=== PATIENT | male | born 1985 | race Caucasian/White ===

== ENCOUNTER → 2017-12-29 | Outpatient (CLI) | payer OTHER ==
[~2017-12-29] MED LIST: MELA1TAB5 PO; PRLSR20 PO
--- NOTE | 2017-12-29 10:36 | PAT Medication Instructions ---
Service Date Dec 29, 2017. Current Home Medication List Melatonin ( Melatonin), 1 TAB PO HS Omeprazole (Prilosec), 40 MG PO QPM Medication Instructions For Your Scheduled Surgery - Take the following medications as scheduled the night before surgery: Melatonin ( Melatonin), 1 TAB PO HS Omeprazole (Prilosec), 40 MG PO QPM If you have any questions please call us at [phone] or [phone] or [phone]
[2017-12-29 12:06] LABS: BASO % 0.5 %; BASO ABS # 0.03 K/uL (0-0.2); EOS % 0.6 %; EOS ABS # 0.04 K/uL (0-0.5); HEMATOCRIT 43.9 % (42-52); HEMOGLOBIN 15.1 g/dL (14.0-18.0); IG# 0.04 K/uL (0.00-0.02); LYMPH % 25.6 %; LYMPH ABS # 1.59 K/uL (1.2-3.4); MEAN CELL VOLUME 83.6 fL (80-100); MEAN CORPUSCULAR HEMOGLOBIN 28.8 pg (25-34); MEAN CORPUSCULAR HGB CONC 34.4 g/dl (32-36); MEAN PLATELET VOLUME 9.5 fL (7.4-10.4); MONO % 8.5 %; MONO ABS # 0.53 K/uL (0.11-0.59); NEUT % 64.2 %; NEUT ABS # 3.99 K/uL (1.4-6.5); PLATELET COUNT 149 K/uL (130-400); RED CELL DISTRIBUTION WIDTH CV 13.6 % (11.5-14.5); RED CELL DISTRIBUTION WIDTH SD 41.4 fL (36.4-46.3); WHITE BLOOD COUNT 6.22 K/uL (4.8-10.8)
== END | disposition home or self-care (01) ==
LOC: C.LAB 17:19
PROVIDERS: ATTEND Otolaryngology
DX: Z01.812 Encounter for preprocedural laboratory examination (principal)

== ENCOUNTER 2018-01-26 07:45 | Observation (INO) | payer OTHER ==
[2017-12-27 14:16] VITALS: BMI 46.0
[2017-12-29 10:17] VITALS: BMI 44.0
--- NOTE | 2018-01-24 15:51 | History and Physical ---
History & Physical Date Jan 24, 2018. Chief Complaint sore throats History of Present Illness The patient is a 32 year old male with complaints of recurrent tonsillitis with history of left peritonsillar abcess Additional History Hepatic Disease: No Endocrine Disorder: No Kidney Disease: No Hypertension: No Heart Disease: No Bleeding Tendencies: No Infectious Diseases: No Allergies Coded Allergies: No Known Allergies (Unverified , 12/27/17) Home Medications Scheduled Melatonin (Kp Melatonin), 1 TAB PO HS Omeprazole (Prilosec), 40 MG PO QPM Physical Examination Skin: warm/dry, no rash Eyes: normal inspection, EOMI, sclerae normal ENT: normal ENT inspection, pharynx normal Head: normocephalic, atraumatic Neck: supple, no adenopathy, trachea midline Respiratory/Chest: lungs clear, normal breath sounds, no respiratory distress Cardiovascular: regular rate, rhythm, no edema, no murmur Abdomen / GI: normal bowel sounds, non tender Back: normal inspection Extremities: normal inspection, normal range of motion Neurologic/Psych: no motor/sensory deficits, alert, normal reflexes, oriented x 3 Diagnosis chronic tonsillitis, left peritonsillar abcess Plan of Treatment adenotonsillectomy
[~2018-01-26] VITALS: Ht 175.3 cm; Wt 136.4 kg
[2018-01-26] VITALS (10 sets, daily range): BP systolic 106–155; BP diastolic 41–91; PULSE 61–75; TEMP 36.3–37.2; O2SAT 92–97; Ht 175.3 cm; Wt 136.4 kg
[2018-01-26] MEDS ORDERED: MIDAZOLAM HCL 1 MG/ML 2ML VIAL ONE (08:51)
[2018-01-26] MEDS ORDERED: FENTANYL CITRATE INJ 50 MCG/1 ML 2 ML VIAL ONE (08:51)
[2018-01-26] MEDS ORDERED: IBUP-1428 PO (09:29)
--- NOTE | 2018-01-26 10:18 | History & Physical Bridge Note ---
H&P Re-Evaluation Bridge Note: I have examined the patient, reviewed the History & Physical and in the interval since the performance of the History & Physical I have noted the following changes of clinical significance: No changes noted
[2018-01-26] MEDS ORDERED: BUPIVACAINE/EPINEPHRINE 0.5% MPF 1:200,000 30 ML VIAL ONE (10:31)
[2018-01-26] MEDS ORDERED: CEFAZOLIN SOD 2000MG/15 ML IV PUSH ONE (10:37)
[2018-01-26] MEDS ORDERED: NURSING VERBAL MED ORDER ONE (10:45)
[2018-01-26] MEDS ORDERED: ACETAMINOPHEN 1000 MG/100 ML IV IV ONE (10:54)
[2018-01-26] MEDS ORDERED: SUCCINYLCHOLINE 100MG/5ML SYR IV ONE (11:07)
[2018-01-26] MEDS ORDERED: PROPOFOL IV EMULSION 10 MG/ML 20 ML VIAL ONE (11:07)
[2018-01-26] MEDS ORDERED: DEXAMETHASONE SOD INJ 4 MG/ML VIAL ONE (11:07)
[2018-01-26] MEDS ORDERED: LIDOCAINE 2% 20 MG/ML 5ML SYR ONE (11:07)
[2018-01-26] MEDS ORDERED: ONDANSETRON INJ 2 MG/ML 2 ML VIAL ONE (11:07)
[2018-01-26] MEDS ORDERED: ROCURONIUM BROMIDE 10 MG/ML 5 ML VIAL ONE ×3 (11:07)
[2018-01-26] MEDS ORDERED: FENTANYL CITRATE INJ 50 MCG/1 ML 2 ML VIAL IV PRN (11:15)
[2018-01-26] MEDS ORDERED: PROMETHAZINE HCL INJ 6.25 MG in SODIUM CHLORIDE 0.9% 50ML 50 ML IV PRN (11:15)
[2018-01-26] MEDS ORDERED: EpHEDrine SULFATE INJ 50 MG/ML AMP IV PRN (11:15)
[2018-01-26] MEDS ORDERED: ONDANSETRON INJ 2 MG/ML 2 ML VIAL IV PRN ×2 (11:15→11:30)
[2018-01-26] MEDS ORDERED: ATROPINE SULFATE 0.1 MG/ML 5ML SYR IV PRN (11:15)
--- NOTE | 2018-01-26 11:27 | [facility] Post Operative Brief Note ---
Immediate Operative Summary Operative Date Jan 26, 2018. Pre-Operative Diagnosis chronic tonsillitis, left peritonsillar abcess Post-Operative Diagnosis chronic tonsillitis, left peritonsillar abcess Procedure(s) Performed Tonsillectomy Surgeon Dr. Thompson Child Day Care Provider Surgeon(s) none Estimated Blood Loss 3mL Findings Consistent with Post-Op Diagnosis Specimens A: Right Tonsil B: Left Tonsil Drains None Anesthesia Type General Complication(s) none Disposition Accompanied Pt To Recover: yes Disposition: Recovery Room / PACU Overlapping Procedure I was present for: the critical portions of procedure. I was immediately available: during the entire case
[2018-01-26] MEDS ORDERED: MoRPHine SULFATE 2 MG/ML CARP IV PRN (11:30)
--- NOTE | 2018-01-26 11:53 | OPERATIVE REPORT ---
DATE OF OPERATION: 01/26/2018 PREOPERATIVE DIAGNOSIS: Chronic tonsillitis. POSTOPERATIVE DIAGNOSIS: Chronic tonsillitis. PROCEDURE: Tonsillectomy. SURGEON: Bibiana Thompson MD ANESTHESIA: General endotracheal. COMPLICATIONS: None. BLOOD LOSS: 3 mL HISTORY OF PRESENT ILLNESS: A 32-year-old gentleman with recurrent chronic tonsillitis had a history of peritonsillar abscess. DESCRIPTION OF PROCEDURE: The patient brought to the operating room and placed in supine position. General endotracheal anesthesia was induced, prepped, draped in the usual sterile manner. The mouth gag was placed. Peritonsillar area injected with 0.5% Sensorcaine 1:200,000 strength epinephrine. Tonsillectomies were performed using the coblation device from the superior pole to the inferior pole. Hemostasis was controlled using the coblation device on the coagulation setting. The pharynx was irrigated clean with saline. The patient tolerated the procedure well and was taken to recovery area in satisfactory condition. I attest to the content of the Intraoperative Record and any orders documented therein. Any exception s are noted below.
--- NOTE | 2018-01-26 12:43 | Anesthesiology Progress Note ---
Anesthesia Post Op Note Date & Time Jan 26, 2018 at 12:43 Vital Signs Pain Intensity: 4 Vital Signs Past 12 Hours Date Time Temp Pulse Resp B/P (MAP) Pulse Ox O2 Delivery O2 Flow Rate FiO2 01/26/18 12:30 62 14 158/94 99 Nasal Cannula 4 01/26/18 12:15 61 15 115/66 99 Nasal Cannula 4 01/26/18 12:05 36.5 61 17 110/63 99 Nasal Cannula 4 01/26/18 11:55 68 15 105/64 97 Nasal Cannula 4 01/26/18 11:45 67 13 120/68 99 Oxymask 10 01/26/18 11:35 78 23 122/85 99 Oxymask 10 01/26/18 11:29 36.5 77 17 124/80 99 Oxymask 10 01/26/18 09:02 37.1 65 20 155/79 (104) 97 Room Air Notes Mental Status: alert / awake / arousable, participated in evaluation Pt Amnestic to Procedure: Yes Nausea / Vomiting: adequately controlled Pain: adequately controlled Airway Patency, RR, SpO2: stable & adequate BP & HR: stable & adequate Hydration State: stable & adequate Anesthetic Complications: no major complications apparent
[2018-01-26] MEDS: D5W AND 1/2NSS + 20MEQ KCL 1,000 ML IV SCH ×2 (13:52→23:38)
[2018-01-26] MEDS ORDERED: IV FLUIDS COMPLETED PRN (14:00)
[2018-01-26] MEDS: ACETAMINOPHEN/HYDROCODONE ELIX 15 ML/CUP UDP PO PRN (15:39)
[2018-01-26] MEDS: MoRPHine SULFATE 4 MG/ML 1 ML CARP\\VIAL IV PRN (23:48)
[2018-01-27 03:30] VITALS: BP 149/73; PULSE 75; TEMP 36.3; O2SAT 95
[2018-01-27] MEDS: MoRPHine SULFATE 4 MG/ML 1 ML CARP\\VIAL IV PRN ×2 (05:22→08:15)
[2018-01-27 08:06] VITALS: BP 150/100; PULSE 70; TEMP 36.6; O2SAT 95
[2018-01-27] MEDS: D5W AND 1/2NSS + 20MEQ KCL 1,000 ML IV SCH (09:30)
[2018-01-27] MEDS ORDERED: HYDR1SOL28 PO (09:35)
--- NOTE | 2018-01-27 09:37 | Discharge Instructions-SurgCtr ---
Discharge Instructions Date of Service Jan 27, 2018. Visit Reason for Visit: Chronic Tonsillitis, Left Peritonsillar Abscess Discharge Discharge Diagnosis / Problem: same Discharge Goals Goal(s): Improve disease control Activity Recommendations Activity Limitations: per Instructions/Follow-up section Anesthesia . Post Anesthesia Instructions: If you have had General Anesthesia or IV Sedation: * Do not drive today. * Resume driving when surgeon permits. * Do not make important decisions or sign legal documents today. * Call surgeon for: 1. Temperature elevations greater than 101 degrees F. 2. Uncontrollable pain. 3. Excessive bleeding. 4. Persistent nausea and vomiting. 5. Medication intolerance (nausea, vomiting or rash). * For nausea and vomiting use only clear liquids such as: tea, soda, bouillon until nausea subsides, then gradually increase diet as tolerated. * If you have any concerns or questions, call your surgeon's office. If physician is unavailable and it is an emergency, call 911 or go to the nearest emergency room. . Instructions / Follow-Up Instructions / Follow-Up ACTIVITY RECOMMENDATIONS: * During the first few days, activities should be limited. * Stay indoors for several days. * After 48 hours, activity can gradually be increased to normal activity. RETURN TO SCHOOL/WORK: * Return to school or work in one week. * No physical education for two weeks. OVER THE COUNTER MEDICATIONS: * You may use Tylenol * Avoid aspirin or aspirin containing products, e.g. as they may increase bleeding. SPECIAL CARE INSTRUCTIONS: * Avoid coughing or clearing the throat. * Do not use a straw. * A sore throat is expected frequently accompanied by pain radiating to the ears. This is normal. * Expect bad breath until "scabs" are healed. * Notify the doctor if bleeding occurs, vomiting, temperature greater than 101 degrees Fahrenheit. Call or cell phone: . * If bleeding occurs, it is usually in the first 24 hours or after the 5th day. If unable to reach the doctor, go to the nearest Emergency Department. Special Diet: * Fluids are very important and should be encouraged to maintain adequate hydration. * To maintain nutrition, eat soft foods and after 48 hours the consistency of foods can be increased. Examples are jello, soup, pasta, ice cream and mashed foods. FOLLOW UP VISIT: Follow-up visit with Dr. Thompson in 2 weeks. Please call to schedule if not already scheduled. Diet Recommendations Home Diet: special diet Diet Texture: Mechanical Soft (ground) Procedures Procedures Performed: Tonsillectomy Pending Studies Studies pending at discharge: no Medical Emergencies . Who to Call and When: Medical Emergencies: If at any time you feel your situation is an emergency, please call 911 immediately. . Non-Emergent Contact Non-Emergency issues call your: Primary Care Provider . . "Provider Documentation" section prepared by Bibiana Thompson. . [place] Drug Monitoring Program Search Results: no issues identified
[2018-01-27 09:46] VITALS: BP 150/100; PULSE 70; TEMP 36.6; O2SAT 95
--- NOTE | 2018-01-27 09:56 | DISCHARGE SUMMARY ---
DIAGNOSIS: Chronic tonsillitis and sleep apnea. HISTORY: This 32-year-old gentleman presented with significant obstructive sleep apnea and also chronic tonsillitis with history of left peritonsillar abscess. HOSPITAL COURSE: The patient was brought to the operating room on 01/26/2018 where he underwent adenotonsillectomy without complications. Postoperatively, he did well, tolerating a full liquid diet. He is being discharged to home on 01/27/2018 with prescription for Lortab Elixir and instructed to return for followup in my office in a [id number].
[2018-01-27] MEDS: ACETAMINOPHEN/HYDROCODONE ELIX 15 ML/CUP UDP PO PRN (11:16)
== END 2018-01-27 11:21 | disposition home or self-care (01) ==
LOC: C.ACU 07:45 → C.MSN 11:27 → ENRESERV 11:58
PROVIDERS: ADMIT Otolaryngology; ATTEND Otolaryngology
DX: J03.90 Acute tonsillitis, unspecified (principal); J45.909 Unspecified asthma, uncomplicated; K21.9 Gastro-esophageal reflux disease without esophagitis; G47.33 Obstructive sleep apnea (adult) (pediatric); Z99.89 Dependence on other enabling machines and devices

== ENCOUNTER 2020-08-31 22:29 | Observation (INO) ==
[2020-08-31 22:57] LABS: Appearance Urine Clear (Clear); Bilirubin Urine Negative (Negative); Blood Urine Negative (Negative); Color Urine Yellow; Glucose Urine UA 3+ (Negative); Ketones Urine 1+ (Negative); Leukocyte Esterase Urine Negative (Negative); Nitrite Urine Negative (Negative); Protein Urine Negative (Negative); Specific Gravity Urine 1.038 (1.000-1.030); Urobilinogen Urine Negative (Negative)
--- NOTE | 2020-08-31 23:04 | Emergency Department Note ---
Impression & Plan Suicidal ideation, Hypertension, Acute hyperglycemia ED Provider Note NAME: NIRAV ESPOSITO AGE: 34 SEX: M : 1985 ARRIVES VIA: Ambulance INFORMANT: [Patient] ED PROVIDER(S): [Landen Crar MD] CHIEF COMPLAINT: Suicidal HISTORY OF PRESENT ILLNESS: The patient is a 34-year-old male with a history of suicidality. He has a history of depression as well. Patient states that 2 weeks ago, he took around 10/150 mg tablets of Effexor. This was a suicide attempt. He did not suffer any consequences. Patient states that tonight, he began feeling suicidal again. He did call crisis. The patient wants to by suffocation. Crisis did recommend a hospital evaluation. The patient was brought by ambulance. The patient is voluntary. Patient states that he is otherwise fairly healthy. He does admit to having a perirectal abscess drained about a month ago at [facility] in [place], he is doing well. Patient states he is taking his medications as prescribed. Of note, the patient was hospitalized on a psychiatric service just over a year ago. He states that he has no real reason to feel suicidal, he has not had any increased stressors. He believes his body's chemistry is off. REVIEW OF SYSTEMS: See HPI for pertinent positives and negatives. A total of ten systems were reviewed and were otherwise negative. PMHx/PSHx: See Below SOCIAL HISTORY: See Below. PHYSICAL EXAM: GENERAL: Patient is in no acute distress. HEENT: No acute trauma, normocephalic atraumatic, mucous membranes moist, no nasal congestion, no scleral icterus. NECK: No stridor, no adenopathy, no meningismus, trachea is midline. LUNGS: Clear to auscultation bilaterally, no wheeze, no rhonchi, breath sounds equal. HEART: 2/6 systolic murmur, regular rate and rhythm. ABDOMEN: Soft, nontender, bowel sounds positive, no hernias, no peritonitis. EXTREMITIES: No cyanosis or edema, full range of motion of all the joints without pain or difficulty, no signs for acute trauma. NEUROLOGIC: Oriented x 3, no acute motor or sensory deficits, no focal weakness. SKIN: No rash, no jaundice, no diaphoresis. Psychiatric: Patient missed to suicidal ideation. He wants to suffocate himself. He is currently voluntary. He realizes he needs help. DIFFERENTIAL DIAGNOSIS: Mood disorder, infection, hypoglycemia, electrolyte abnormalities, cardiac sources, suicidality, depression, intracerebral event, toxicologic etiology, trauma, neurologic event, as well as other pathologies. EMERGENCY DEPARTMENT COURSE/PROCEDURES: MEDICAL DECISION MAKING: There is no leukocytosis or concerning anemia. Platelet count slightly low at 126. Urinalysis showed glucose, no infection. Aspirin, Tylenol and alcohol levels were undetectable. Urine tox was negative. Glucose was high at 343. No kidney failure. There were some subtle liver enzyme elevations however, the bilirubin was normal. Patient appeared to be in a euthyroid state. Covid and influenza testing were negative. Patient did admit to suicidal ideation by suffocation, he was voluntary. The patient eventually had an IV placed. He was given IV insulin, IV saline and IV labetalol. The patient presents with suicidal ideation. His medical work-up found him to be hypertensive and hyperglycemic. He has no history of either diagnosis. A hospital stay is warranted. A psychiatric consult can be placed while the patient is having his medical issues addressed. The patient was told the results of his testing, he understands the need for a hospital stay. Case management has been involved. 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 Depression History of asthma STABLE History of sleep apnea CPAP Legally blind REVERSE RETINITIS PIGMENTOSA (RP); MINIMAL PERIPHERAL VISION Morbid obesity Surgical History (Updated 07/22/20 @ 10:43 by Nara Saba) History of adenoidectomy History of arthroscopy of left knee History of circumcision History of difficult intubation Tonsillectomy= 01/26/18= Glidescope#4, ETT 8.0 at [facility] History of knee surgery left meniscus History of left knee surgery ACL REPAIR History of placement of ear tubes MULTIPLE History of tonsillectomy History of vasectomy Family History (Updated 07/22/20 @ 10:40 by Nara Saba) Other No family history of allergies No family history of bleeding disorder Denies family history of Hearing loss Heart disease Cancer Hypertension Stroke Asthma Social History Smoking Status: Never smoker Tobacco Type: Cigarettes Cigarettes Per Day: 1 pack per week from 0399-5575; Hx Alcohol Use: Yes (None in the last 6 months) Hx Substance Use: No Preferred Language: Greenlandic Communication Ability: Effective Audograph Operator Required: No Beliefs That Will Affect Care: Yarsani Yarsani Beliefs: "IF SOMETHING GOES WRONG THAT WOULD HAVE TO LIVE ON MACHINES, DON'T BRING ME BACK" marital status: Current Living Situation: Alone current occupational status: employed 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 Feels Safe at Home: Yes Assistive Devices: None Allergies Allergies Allergy/AdvReac Type Severity Reaction Status Date / Time pollen extracts AdvReac Unknown Verified 08/31/20 23:32 Home Meds Home Medications Medication Instructions Recorded Confirmed melatonin 10 mg PO HS 08/23/18 08/31/20 omeprazole 40 mg PO 1700 08/23/18 08/31/20 Ambien See Rx Instructions .ROUTE .COMPLEX 08/31/20 08/31/20 ibuprofen 600 mg PO TID 08/31/20 08/31/20 prednisone See Rx Instructions .ROUTE .COMPLEX 08/31/20 08/31/20 Results & Data (ED) Vital Signs Vital Signs - 24 hr 08/31/20 22:37 Temperature 37.1 C Temperature Source Oral Pulse Rate 90 Respiratory Rate 18 Respiratory Effort / Characteristics Non-Labored Spontaneous Respiratory Depth Normal Respiratory Pattern Regular Blood Pressure 189/110 H Blood Pressure Mean 136 Blood Pressure Position Sitting Pulse Oximetry 98 Oxygen Delivery Method Room Air Sepsis Recent Fever Within 48 Hours No Sepsis New/Unexplained Change in Mental Status No Sepsis Action Taken by Nursing No Action Required Home Medications Current Medication List: was personally reviewed by me Laboratory Data Attestation: I reviewed the patient's lab results. Result diagrams: 08/31/20 22:57 08/31/20 22:57 Lab Results 08/31/20 08/31/20 08/31/20 Range/Units 22:45 22:45 22:57 WBC 6.56 (4.8-10.8) K/uL RBC 4.59 L (4.7-6.1) M/uL Hgb 13.7 L (14.0-18.0) g/dL Hct 38.6 L (42-52) % MCV 84.1 (80-100) fL MCH 29.8 (25-34) pg MCHC 35.5 (32-36) g/dL RDW Std Deviation 43.8 (36.4-46.3) fL RDW Coeff of Merly 14.3 (11.5-14.5) % Plt Count 126 L (130-400) K/uL MPV 9.5 (7.4-10.4) fL Immature Gran % (Auto) 0.8 % Neut % (Auto) 76.5 % Lymph % (Auto) 14.6 % Alfalfa % (Auto) 7.6 % Eos % (Auto) 0.2 % Baso % (Auto) 0.3 % Neut # (Auto) 5.02 (1.4-6.5) K/uL Lymph # (Auto) 0.96 L (1.2-3.4) K/uL Alfalfa # (Auto) 0.50 (0.11-0.59) K/uL Eos # (Auto) 0.01 (0-0.5) K/uL Baso # (Auto) 0.02 (0-0.2) K/uL Immature Gran # (Auto) 0.05 H (0.00-0.02) K/uL Sodium (136-145) mmol/L Potassium (3.5-5.1) mmol/L Chloride (98-107) mmol/L Carbon Dioxide (21-32) mmol/L Anion Gap (3-11) BUN (7-18) mg/dl Creatinine (0.6-1.4) mg/dl Est Cr Clr Drug Dosing ml/min Est GFR ( Amer) Est GFR (Non-Af Amer) BUN/Creatinine Ratio (10-20) Glucose (70-99) mg/dl Calcium (8.5-10.1) mg/dl Magnesium (1.8-2.4) mg/dl Total Bilirubin (0.2-1) mg/dl AST (15-37) U/L ALT (12-78) U/L Alkaline Phosphatase (45-117) U/L Total Protein (6.4-8.2) gm/dl Albumin (3.4-5.0) gm/dl Globulin (2.5-4.0) gm/dl Albumin/Globulin Ratio (0.9-2) Beta-Hydroxybutyric Acd (0.2-2.81) mg/dl TSH (0.300-4.500) uIu/ml Urine Color Yellow Urine Appearance Clear (Clear) Urine pH 6.0 (4.5-7.5) Ur Specific [place] 1.038 H (1.000-1.030) Urine Protein Negative (Negative) Urine Glucose (UA) 3+ H (Negative) Urine Ketones 1+ H (Negative) Urine Blood Negative (Negative) Urine Nitrite Negative (Negative) Urine Bilirubin Negative (Negative) Urine Urobilinogen Negative (Negative) Ur Leukocyte Esterase Negative (Negative) Salicylates (2.8-20) mg/dl Urine Opiates Screen Neg (Neg) Ur Methadone, Qual Neg (Neg) Acetaminophen (10-30) ug/ml Urine Barbiturates Neg (Neg) Ur Phencyclidine (PCP) Neg (Neg) U Amphetamin/Meth Scrn Neg (Neg) MDMA (Ecstasy) Screen Neg (Neg) U Benzodiazepines Scrn Neg (Neg) Ur Cocaine Metabolite Neg (Neg) U Marijuana (THC) Screen Neg (Neg) Ethyl Alcohol mg/dL (0-3) mg/dl COVID-19 Eval Order SARS-CoV-2 (PCR) (Negative) Influenza Type A (PCR) (Neg) Influenza Type B (PCR) (Neg) RSV (RT-PCR) (Neg) 08/31/20 08/31/20 08/31/20 Range/Units 22:57 22:57 22:57 WBC (4.8-10.8) K/uL RBC (4.7-6.1) M/uL Hgb (14.0-18.0) g/dL Hct (42-52) % MCV (80-100) fL MCH (25-34) pg MCHC (32-36) g/dL RDW Std Deviation (36.4-46.3) fL RDW Coeff of Merly (11.5-14.5) % Plt Count (130-400) K/uL MPV (7.4-10.4) fL Immature Gran % (Auto) % Neut % (Auto) % Lymph % (Auto) % Alfalfa % (Auto) % Eos % (Auto) % Baso % (Auto) % Neut # (Auto) (1.4-6.5) K/uL Lymph # (Auto) (1.2-3.4) K/uL Alfalfa # (Auto) (0.11-0.59) K/uL Eos # (Auto) (0-0.5) K/uL Baso # (Auto) (0-0.2) K/uL Immature Gran # (Auto) (0.00-0.02) K/uL Sodium 137 (136-145) mmol/L Potassium 4.0 (3.5-5.1) mmol/L Chloride 104 (98-107) mmol/L Carbon Dioxide 27 (21-32) mmol/L Anion Gap 6.0 (3-11) BUN 23 H (7-18) mg/dl Creatinine 1.05 (0.6-1.4) mg/dl Est Cr Clr Drug Dosing 138.3 ml/min Est GFR ( Amer) 105.3 Est GFR (Non-Af Amer) 90.9 BUN/Creatinine Ratio 21.4 H (10-20) Glucose 343 H* (70-99) mg/dl Calcium 8.5 (8.5-10.1) mg/dl Magnesium 2.1 (1.8-2.4) mg/dl Total Bilirubin 0.4 (0.2-1) mg/dl AST 41 H (15-37) U/L ALT 82 H (12-78) U/L Alkaline Phosphatase 117 (45-117) U/L Total Protein 6.8 (6.4-8.2) gm/dl Albumin 3.8 (3.4-5.0) gm/dl Globulin 3.0 (2.5-4.0) gm/dl Albumin/Globulin Ratio 1.3 (0.9-2) Beta-Hydroxybutyric Acd 1.29 (0.2-2.81) mg/dl TSH 0.886 (0.300-4.500) uIu/ml Urine Color Urine Appearance (Clear) Urine pH (4.5-7.5) Ur Specific [place] (1.000-1.030) Urine Protein (Negative) Urine Glucose (UA) (Negative) Urine Ketones (Negative) Urine Blood (Negative) Urine Nitrite (Negative) Urine Bilirubin (Negative) Urine Urobilinogen (Negative) Ur Leukocyte Esterase (Negative) Salicylates < 1.7 L (2.8-20) mg/dl Urine Opiates Screen (Neg) Ur Methadone, Qual (Neg) Acetaminophen < 2 L (10-30) ug/ml Urine Barbiturates (Neg) Ur Phencyclidine (PCP) (Neg) U Amphetamin/Meth Scrn (Neg) MDMA (Ecstasy) Screen (Neg) U Benzodiazepines Scrn (Neg) Ur Cocaine Metabolite (Neg) U Marijuana (THC) Screen (Neg) Ethyl Alcohol mg/dL < 3.0 (0-3) mg/dl COVID-19 Eval Order SARS-CoV-2 (PCR) (Negative) Influenza Type A (PCR) (Neg) Influenza Type B (PCR) (Neg) RSV (RT-PCR) (Neg) 08/31/20 08/31/20 Range/Units 23:33 23:33 WBC (4.8-10.8) K/uL RBC (4.7-6.1) M/uL Hgb (14.0-18.0) g/dL Hct (42-52) % MCV (80-100) fL MCH (25-34) pg MCHC (32-36) g/dL RDW Std Deviation (36.4-46.3) fL RDW Coeff of Merly (11.5-14.5) % Plt Count (130-400) K/uL MPV (7.4-10.4) fL Immature Gran % (Auto) % Neut % (Auto) % Lymph % (Auto) % Alfalfa % (Auto) % Eos % (Auto) % Baso % (Auto) % Neut # (Auto) (1.4-6.5) K/uL Lymph # (Auto) (1.2-3.4) K/uL Alfalfa # (Auto) (0.11-0.59) K/uL Eos # (Auto) (0-0.5) K/uL Baso # (Auto) (0-0.2) K/uL Immature Gran # (Auto) (0.00-0.02) K/uL Sodium (136-145) mmol/L Potassium (3.5-5.1) mmol/L Chloride (98-107) mmol/L Carbon Dioxide (21-32) mmol/L Anion Gap (3-11) BUN (7-18) mg/dl Creatinine (0.6-1.4) mg/dl Est Cr Clr Drug Dosing ml/min Est GFR ( Amer) Est GFR (Non-Af Amer) BUN/Creatinine Ratio (10-20) Glucose (70-99) mg/dl Calcium (8.5-10.1) mg/dl Magnesium (1.8-2.4) mg/dl Total Bilirubin (0.2-1) mg/dl AST (15-37) U/L ALT (12-78) U/L Alkaline Phosphatase (45-117) U/L Total Protein (6.4-8.2) gm/dl Albumin (3.4-5.0) gm/dl Globulin (2.5-4.0) gm/dl Albumin/Globulin Ratio (0.9-2) Beta-Hydroxybutyric Acd (0.2-2.81) mg/dl TSH (0.300-4.500) uIu/ml Urine Color Urine Appearance (Clear) Urine pH (4.5-7.5) Ur Specific [place] (1.000-1.030) Urine Protein (Negative) Urine Glucose (UA) (Negative) Urine Ketones (Negative) Urine Blood (Negative) Urine Nitrite (Negative) Urine Bilirubin (Negative) Urine Urobilinogen (Negative) Ur Leukocyte Esterase (Negative) Salicylates (2.8-20) mg/dl Urine Opiates Screen (Neg) Ur Methadone, Qual (Neg) Acetaminophen (10-30) ug/ml Urine Barbiturates (Neg) Ur Phencyclidine (PCP) (Neg) U Amphetamin/Meth Scrn (Neg) MDMA (Ecstasy) Screen (Neg) U Benzodiazepines Scrn (Neg) Ur Cocaine Metabolite (Neg) U Marijuana (THC) Screen (Neg) Ethyl Alcohol mg/dL (0-3) mg/dl COVID-19 Eval Order CovFluRsv at [facility] SARS-CoV-2 (PCR) NEGATIVE (Negative) Influenza Type A (PCR) Negative (Neg) Influenza Type B (PCR) Negative (Neg) RSV (RT-PCR) Negative (Neg) Administered Medications Sodium Chloride (Nss 1000ml) 500 mls @ 999 mls/hr IV .Q31M ONE Stop: 09/01/20 00:31 Last Admin: 09/01/20 00:15 Dose: 999 mls/hr Documented by: [id number] Discontinued Medications Insulin Human Regular (Novolin-R Insulin Per Unit Charge) 8 units IV NOW STA Stop: 09/01/20 00:02 Last Admin: 09/01/20 00:15 Dose: 8 units Documented by: [id number] Cosigned by: [id number] Labetalol HCl (Labetalol Hcl Iv 5 Mg/Ml 20ml) 10 mg IV NOW STA Stop: 09/01/20 00:02 Last Admin: 09/01/20 00:15 Dose: 10 mg Documented by: [id number] Cosigned by: [id number] Discharge Plan Visit Data Chief Complaint: Mental Health Evaluation Stated Complaint: [facility] ED Provider: Landen Carr Discharge Problem: Suicidal ideation, Hypertension, Acute hyperglycemia Patient Disposition: Admitted As Inpatient Condition: Good Forms Stand Alone Forms: [facility], Suicide Prevention Resources Prescriptions Prescriptions: No Action omeprazole 40 mg Capsule,Delayed Release(Dr/Ec) 40 mg PO 1700 RF: 0 melatonin 10 mg Capsule 10 mg PO HS RF: 0 Ambien See Rx Instructions .ROUTE .COMPLEX RF: 0 ibuprofen 600 mg tablet 600 mg PO TID RF: 0 prednisone See Rx Instructions .ROUTE .COMPLEX RF: 0 Referrals Referrals: Santiago Lopez DO [Primary Care Provider] - Discharge Problem: Hypertension Qualifiers: Hypertension type: unspecified Qualified Code(s): I10 - Essential (primary) hypertension
[2020-08-31 23:10] LABS: Basophils # (auto) 0.02 K/uL (0-0.2); Basophils % (auto) 0.3 %; Eosinophils # (auto) 0.01 K/uL (0-0.5); Eosinophils % (auto) 0.2 %; Hematocrit (blood only) 38.6 % (42-52); Hemoglobin 13.7 g/dL (14.0-18.0); Immature Granulocytes # (auto) 0.05 K/uL (0.00-0.02); Immature Granulocytes % (auto) 0.8 %; Lymphocytes # (auto) 0.96 K/uL (1.2-3.4); Lymphocytes % (auto) 14.6 %; Mean Corpuscular Hemoglobin 29.8 pg (25-34); Mean Corpuscular Hgb Conc 35.5 g/dL (32-36); Mean Corpuscular Volume 84.1 fL (80-100); Mean Platelet Volume 9.5 fL (7.4-10.4); Monocytes % (auto) 7.6 %; Neutrophils # (auto) 5.02 K/uL (1.4-6.5); Neutrophils % (auto) 76.5 %; Platelet Count 126 K/uL (130-400); RDW Coefficient of Variation 14.3 % (11.5-14.5); RDW Standard Deviation 43.8 fL (36.4-46.3); Red Blood Count 4.59 M/uL (4.7-6.1); White Blood Count 6.56 K/uL (4.8-10.8)
[2020-08-31 23:17] LABS: Amphetamines+Metham, Urine Neg (Neg); Barbiturates, Urine Neg (Neg); Benzodiazepine, Urine Neg (Neg); Cocaine, Urine Neg (Neg); MDMA (Ecstacy), Urine Neg (Neg); Methadone, Urine Neg (Neg); Opiate, Urine Neg (Neg); Phencyclidine, Urine Neg (Neg)
[2020-08-31 23:41] LABS: Acetaminophen < 2 ug/ml (10-30); Salicylate < 1.7 mg/dl (2.8-20)
[2020-08-31 23:53] LABS: Albumin Globulin Ratio 1.3 (0.9-2); Albumin Level 3.8 gm/dl (3.4-5.0); BUN Creatinine Ratio 21.4 (10-20); Bilirubin,Total 0.4 mg/dl (0.2-1); Calcium 8.5 mg/dl (8.5-10.1); Creatinine Clr Calc Pharmacy 138.3 ml/min; Est GFR (African American) 105.3; Est GFR (Non-African American) 90.9; Thyroid Stimulating Hormone 0.886 uIu/ml (0.300-4.500); Total Protein 6.8 gm/dl (6.4-8.2)
[2020-09-01] MEDS ORDERED: NovoLIN-R INSULIN PER UNIT CHARGE IV STA (00:01)
[2020-09-01] MEDS ORDERED: LABETALOL HCL IV 5 MG/ML 20ML IV STA (00:01)
[2020-09-01] MEDS ORDERED: SODIUM CHLORIDE 0.9% 1000ML 500 ML IV ONE (00:01)
[2020-09-01 00:10] LABS: Beta-Hydroxybutyrate 1.29 mg/dl (0.2-2.81)
[2020-09-01 00:14] LABS: Magnesium 2.1 mg/dl (1.8-2.4)
[2020-09-01 00:22] LABS: Influenza A virus by PCR Negative (Neg); Influenza B virus by PCR Negative (Neg); RSV by PCR Negative (Neg); SARS CoV2 RNA(COVID-19) InHosp NEGATIVE (Negative)
[2020-09-01] MEDS ORDERED: INSULIN GLARGINE SOLOSTAR 100 UNITS/ML 3 ML PEN SC STA (01:52)
--- NOTE | 2020-09-01 02:32 | History & Physical Report ---
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 It may contain grammatical or spelling errors. Kindly contact undersigned for clarification of any documentation item in question. History of Present Illness Chief Complaint: Suicidality Primary Care Provider: Santiago Lopez DO History obtained from patient and records. 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 No ER evaluation. About 10 days ago, patient noted achy LUE antecubital fossa/elbow pain after [facility] ([facility]) ER visit for chest pain. No fever, no chills. Not sure if related to IV insertion during ER visit as per documentation. Left elbow x-ray did not show any fracture or dislocation. Upper extremity LE Dopplers did not show DVT. Patient seen by [facility] orthopedics outpatient 4 days ago. Outpatient left elbow MRI contemplated. Ibuprofen and prednisone course prescribed for pain. Minimal response to regimen as per patient. Patient seen at [facility] ER 2 days ago for anxiety and chest pain. No suicidality at time of visit. SBP noted to be 180s at the ER. Patient made aware by ED provider of high blood pressure and abnormal blood work results (glucose 274, anemia and thrombocytopenia) which added to patient's frustration. Recurrent nightmares over the weekend. Yesterday, patient had fleeting suicidal thoughts of suffocating himself with a pillow at home. Patient denies headache, chest pain, S OB, cough symptoms. Patient brought to ER for evaluation. Highest BP noted to 180s at the ER. BSG noted to be 300s. IV labetalol and insulin given at the ER. 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 Allergies Allergy/AdvReac Type Severity Reaction Status Date / Time pollen extracts AdvReac Unknown Verified 08/31/20 23:32 Home Medications Medication Instructions Recorded Confirmed Type melatonin 10 mg PO HS 08/23/18 08/31/20 History omeprazole 40 mg PO 1700 08/23/18 08/31/20 History Ambien See Rx Instructions .ROUTE .COMPLEX 08/31/20 08/31/20 History ibuprofen 600 mg PO TID 08/31/20 08/31/20 History prednisone See Rx Instructions .ROUTE .COMPLEX 08/31/20 08/31/20 History 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 Depression History of asthma STABLE History of sleep apnea CPAP Legally blind REVERSE RETINITIS PIGMENTOSA (RP); MINIMAL PERIPHERAL VISION Morbid obesity Surgical History (Updated 07/22/20 @ 10:43 by Nara Saba) History of adenoidectomy History of arthroscopy of left knee History of circumcision History of difficult intubation Tonsillectomy= 01/26/18= Glidescope#4, ETT 8.0 at [facility] History of knee surgery left meniscus History of left knee surgery ACL REPAIR History of placement of ear tubes MULTIPLE History of tonsillectomy History of vasectomy Family History (Updated 07/22/20 @ 10:40 by Nara Saba) Other No family history of allergies No family history of bleeding disorder Denies family history of Hearing loss Heart disease Cancer Hypertension Stroke Asthma Social History Smoking Status: Never smoker Tobacco Type: Cigarettes Cigarettes Per Day: 1 pack per week from [id number]; Hx Alcohol Use: Yes (None in the last 6 months) Alcohol type: beer, wine and hard liquor Hx Substance Use: No Preferred Language: Nepalese Communication Ability: Effective Drapery Counselor Required: No Beliefs That Will Affect Care: None marital status: Current Living Situation: Alone current occupational status: employed current occupation: [employer] Other Information That Helps Us Care for You: No Feels Safe at Home: Yes Safety Concerns: Feels Safe At This Time Assistive Devices: None and CPAP Review of Systems Review of Systems: As per HPI, all 10 systems reviewed, all other ROS negative Physical Exam Physical Exam: GENERAL: Comfortable, no respiratory distress, morbidly obese SKIN: Pallor, warm HEENT: Pale palpebral conjunctivae, no ptosis, dry buccal mucosa NECK : Supple, short neck, no tenderness CHEST : CTA, no tenderness HEART : RRR, no obvious murmurs ABDOMEN: Some distention, nontender EXTREMITIES : No LE swelling/tenderness, minimal tenderness left antecubital fossa, no other conspicuous deformities noted NEUROLOGIC : Coherent, visual acuity not tested, no facial asymmetry, no other gross focality Results & Data Results & Data ([facility]) Vital Signs (Past 12 Hours) Vital Signs Temp Pulse Resp BP Pulse Ox 09/01/20 02:00 79 20 161/88 H 97 09/01/20 01:30 80 19 157/84 H 96 09/01/20 01:02 83 16 170/87 H 96 09/01/20 01:00 82 22 96 09/01/20 00:31 83 15 97 09/01/20 00:30 83 21 148/80 H 96 09/01/20 00:29 81 23 97 08/31/20 22:37 37.1 C 90 18 189/110 H 98 Laboratory Results Laboratory Results WBC 6.56 K/uL (4.8-10.8) 08/31/20 22:57 RBC 4.59 M/uL (4.7-6.1) L 08/31/20 22:57 Hgb 13.7 g/dL (14.0-18.0) L 08/31/20 22:57 Hct 38.6 % (42-52) L 08/31/20 22:57 MCV 84.1 fL (80-100) 08/31/20 22:57 MCH 29.8 pg (25-34) 08/31/20 22:57 MCHC 35.5 g/dL (32-36) 08/31/20 22:57 RDW Std Deviation 43.8 fL (36.4-46.3) 08/31/20 22:57 RDW Coeff of Merly 14.3 % (11.5-14.5) 08/31/20 22:57 Plt Count 126 K/uL (130-400) L 08/31/20 22:57 MPV 9.5 fL (7.4-10.4) 08/31/20 22:57 Immature Gran % (Auto) 0.8 % 08/31/20 22:57 Neut % (Auto) 76.5 % 08/31/20 22:57 Lymph % (Auto) 14.6 % 08/31/20 22:57 [place]offey % (Auto) 7.6 % 08/31/20 22:57 Eos % (Auto) 0.2 % 08/31/20 22:57 Baso % (Auto) 0.3 % 08/31/20 22:57 Neut # (Auto) 5.02 K/uL (1.4-6.5) 08/31/20 22:57 Lymph # (Auto) 0.96 K/uL (1.2-3.4) L 08/31/20 22:57 [place]offey # (Auto) 0.50 K/uL (0.11-0.59) 08/31/20 22:57 Eos # (Auto) 0.01 K/uL (0-0.5) 08/31/20 22:57 Baso # (Auto) 0.02 K/uL (0-0.2) 08/31/20 22:57 Immature Gran # (Auto) 0.05 K/uL (0.00-0.02) H 08/31/20 22:57 Sodium 137 mmol/L (136-145) 08/31/20 22:57 Potassium 4.0 mmol/L (3.5-5.1) 08/31/20 22:57 Chloride 104 mmol/L (98-107) 08/31/20 22:57 Carbon Dioxide 27 mmol/L (21-32) 08/31/20 22:57 Anion Gap 6.0 (3-11) 08/31/20 22:57 BUN 23 mg/dl (7-18) H 08/31/20 22:57 Creatinine 1.05 mg/dl (0.6-1.4) 08/31/20 22:57 Est Cr Clr Drug Dosing 138.3 ml/min 08/31/20 22:57 Est GFR ( Amer) 105.3 08/31/20 22:57 Est GFR (Non-Af Amer) 90.9 08/31/20 22:57 BUN/Creatinine Ratio 21.4 (10-20) H 08/31/20 22:57 Glucose 343 mg/dl (70-99) H* 08/31/20 22:57 POC Glucose 246 mg/dl (70-99) H 09/01/20 01:01 Calcium 8.5 mg/dl (8.5-10.1) 08/31/20 22:57 Magnesium 2.1 mg/dl (1.8-2.4) 08/31/20 22:57 Total Bilirubin 0.4 mg/dl (0.2-1) 08/31/20 22:57 AST 41 U/L (15-37) H 08/31/20 22:57 ALT 82 U/L (12-78) H 08/31/20 22:57 Alkaline Phosphatase 117 U/L (45-117) 08/31/20 22:57 Total Protein 6.8 gm/dl (6.4-8.2) 08/31/20 22:57 Albumin 3.8 gm/dl (3.4-5.0) 08/31/20 22:57 Globulin 3.0 gm/dl (2.5-4.0) 08/31/20 22:57 Albumin/Globulin Ratio 1.3 (0.9-2) 08/31/20 22:57 Beta-Hydroxybutyric Acd 1.29 mg/dl (0.2-2.81) 08/31/20 22:57 TSH 0.886 uIu/ml (0.300-4.500) 08/31/20 22:57 Urine Color Yellow 08/31/20 22:45 Urine Appearance Clear (Clear) 08/31/20 22:45 Urine pH 6.0 (4.5-7.5) 08/31/20 22:45 Ur Specific [place] 1.038 (1.000-1.030) H 08/31/20 22:45 Urine Protein Negative (Negative) 08/31/20 22:45 Urine Glucose (UA) 3+ (Negative) H 08/31/20 22:45 Urine Ketones 1+ (Negative) H 08/31/20 22:45 Urine Blood Negative (Negative) 08/31/20 22:45 Urine Nitrite Negative (Negative) 08/31/20 22:45 Urine Bilirubin Negative (Negative) 08/31/20 22:45 Urine Urobilinogen Negative (Negative) 08/31/20 22:45 Ur Leukocyte Esterase Negative (Negative) 08/31/20 22:45 Salicylates < 1.7 mg/dl (2.8-20) L 08/31/20 22:57 Urine Opiates Screen Neg (Neg) 08/31/20 22:45 Ur Methadone, Qual Neg (Neg) 08/31/20 22:45 Acetaminophen < 2 ug/ml (10-30) L 08/31/20 22:57 Urine Barbiturates Neg (Neg) 08/31/20 22:45 Ur Phencyclidine (PCP) Neg (Neg) 08/31/20 22:45 U Amphetamin/Meth Scrn Neg (Neg) 08/31/20 22:45 MDMA (Ecstasy) Screen Neg (Neg) 08/31/20 22:45 U Benzodiazepines Scrn Neg (Neg) 08/31/20 22:45 Ur Cocaine Metabolite Neg (Neg) 08/31/20 22:45 U Marijuana (THC) Screen Neg (Neg) 08/31/20 22:45 Ethyl Alcohol mg/dL < 3.0 mg/dl (0-3) 08/31/20 22:57 COVID-19 Eval Order CovFluRsv at [facility] 08/31/20 23:33 SARS-CoV-2 (PCR) NEGATIVE (Negative) 08/31/20 23:33 Influenza Type A (PCR) Negative (Neg) 08/31/20 23:33 Influenza Type B (PCR) Negative (Neg) 08/31/20 23:33 RSV (RT-PCR) Negative (Neg) 08/31/20 23:33
[2020-09-01] MEDS ORDERED: lisinopril 5 MG TAB PO STA (02:40)
[2020-09-01] MEDS ORDERED: PROMETHAZINE HCL 12.5 MG in SODIUM CHLORIDE 0.9% 50 ML IV PRN (04:51)
[2020-09-01] MEDS ORDERED: GLUCOSE 10 TABS/TUBE PO PRN (04:51)
[2020-09-01] MEDS ORDERED: SODIUM CHLORIDE 0.9% 1000ML 1,000 ML IV ONE (04:51)
[2020-09-01] MEDS ORDERED: GLUCOSE 40% GEL 15 GM TUBE PO PRN (04:51)
[2020-09-01] MEDS ORDERED: GLUCAGON FOR INJ 1 MG VIAL SQ PRN (04:51)
[2020-09-01] MEDS ORDERED: CARBOHYDRATES FOR HYPOGLYCEMIA PO PRN (04:51)
[2020-09-01] MEDS ORDERED: DEXTROSE 50% 50 ML SYRINGE IV PRN (04:51)
[2020-09-01] MEDS ORDERED: traMADol HCL 50 MG TABLET PO PRN (04:51)
[2020-09-01] MEDS ORDERED: ACETAMINOPHEN 325 MG TAB PO PRN (04:51)
[2020-09-01] MEDS: INSULIN ASPART 100 UNITS/ML 3 ML PEN SC SCH ×3 (05:51→12:13)
[2020-09-01 06:36] LABS: Estimated Average Glucose 143 mg/dl; Hemoglobin A1C 6.6 % (4.5-5.6)
--- NOTE | 2020-09-01 08:53 | Hospitalist Progress Note ---
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 OBS Medical telemetry Initiate lisinopril Basal insulin, ISS BG goal [id number], carb count coverage, update hemoglobin A1c DM education Left elbow MRI Re: Pain of 2 weeks duration Orthopedics consult Re: Persistent left elbow pain Psych consult Re: Suicidality Outpatient GI consult for CROWLEY DVT prophylaxis with SCDs Re: Thrombocytopenia Full code Labs Checked ROS-No Headache, No Visual Changes, No Nausea, No Vomiting, No Fever, No Chills, No Neck Pain or Stiffness, No Chest Pain, No Palpitations, No SOB, No STEIN, No Cough, No Sputum, No Wheezing, No Abdominal Pain, No Diarrhea, No Hematemesis, No Hemoptysis, No Unexpected Weight Loss, No Flank pain, No Melena, No Hematochezia, No Frequency, No Urgency, No Burning, No Hematuria, No Rashes, No Diaphoresis. Appetite is Normal Physical Exam Gen-AAO x 3, NAD, Afebrile Head-NCAT, EOMI, PERRLA, Anicteric Sclera, No Posterior Pharyngeal Erythema Neck-Supple, No JVD, No Thyromegaly, No Masses, No LAD, No Bruits Lungs-Clear to Auscultation Bilaterally, No Rales, No Rhonchi, No Wheezing, No Crepitus Chest-No S4, +S1, +S2, No S3, No Murmurs, No Rubs, No Gallops, No Ectopy Abdomen-Soft, Bowel Sounds Present, Non Tender, Non Distended, No Hepatomegaly, No Splenomegaly, No Palpable Masses, No Rebound, No Rigidity, No Guarding Musculoskeletal-Full Range of Motion Bilaterally, No CVAT Extremities-No Cyanosis, No Clubbing, No Edema Nuero-Cranial Nerves II-XII grossly intact, Motor WNL, DTRs WNL, Strength WNL, Non Focal Psych-Normal Mood Admission and Anticipated Discharge Date Admission Date: September 01, 2020 Results & Data Results & Data ([facility]) Vital Signs (Past 12 Hours) Vital Signs Temp Pulse Pulse Resp BP BP Pulse Ox 09/01/20 04:52 36.4 C L 82 18 162/84 H 94 09/01/20 04:00 74 18 147/98 H 96 09/01/20 03:30 76 19 146/90 H 96 09/01/20 03:00 76 18 146/87 H 96 09/01/20 02:30 79 24 165/101 H 96 09/01/20 02:00 79 20 161/88 H 97 09/01/20 01:30 80 19 157/84 H 96 09/01/20 01:02 83 16 170/87 H 96 09/01/20 01:00 82 22 96 09/01/20 00:31 83 15 97 09/01/20 00:30 83 21 148/80 H 96 09/01/20 00:29 81 23 97 08/31/20 22:37 37.1 C 90 18 189/110 H 98
[2020-09-01] MEDS ORDERED: INSULIN GLARGINE SOLOSTAR 100 UNITS/ML 3 ML PEN SC SCH (09:00)
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
--- NOTE | 2020-09-01 13:44 | Magnetic Resonance Report ---
MR elbow LT wo con CLINICAL HISTORY: 34 years-old Male with L elbow pain. Acute pain of the left elbow and antecubital fossa fossa with history of recent IV catheter insertion COMPARISON: None. TECHNIQUE: Multiplanar, multi sequence MRI of the left elbow was performed without intravenous contra st. FINDINGS: Motion degraded exam. LATERAL COLLATERAL LIGAMENT: The lateral collateral ligaments including the lateral ulnar collateral ligament are intact and unremarkable in appearance. COMMON EXTENSOR TENDON: Mild thickening with intermediate T2 signal of the common extensor suggests tendinosis. No acute tear identified. MEDIAL COLLATERAL LIGAMENT: The ulnar collateral ligament, including the anterior and posterior band s, is intact and unremarkable in appearance. COMMON FLEXOR TENDON: The common flexor origin from the medial epicondyle is normal in appearance. No evidence of tendinosis or tear to suggest medial epicondylitis. MUSCLES: The biceps and brachialis tendon insertions are normal in appearance. No evidence of tear or strain. The triceps tendon insertion on the olecranon is also unremarkable in appearance. ULNAR NERVE: The ulnar nerve is normally located in the ulnar sulcus and is unremarkable in appearan ce. BONE MARROW: Bone marrow is normal in signal without evidence of fracture, marrow contusion or marro w occupying lesion. SOFT TISSUES: Minimal nonspecific subcutaneous edema of the lateral elbow posterior to the lateral e picondyle. IMPRESSION: 1. Motion degraded exam. 2. Unremarkable MRI of the elbow without acute ligamentous or tendon tear identified. ACT 112: Negative or not required by law. The above report was generated using voice recognition software. It may contain grammatical, syntax o r spelling errors. Electronically signed by: Zaid Waggoner M.D. 09/01/2020 1:43 PM
[2020-09-01] MEDS ORDERED: PANTOprazole 40 MG TAB PO SCH (17:00)
--- NOTE | 2020-09-01 17:06 | Discharge Summary ---
Date of Service September 01, 2020 Admission HPI Per Admitting Provider History obtained from patient and records. 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 No ER evaluation. About 10 days ago, patient noted achy LUE antecubital fossa/elbow pain after [facility] ([facility]) ER visit for chest pain. No fever, no chills. Not sure if related to IV insertion during ER visit as per documentation. Left elbow x-ray did not show any fracture or dislocation. Upper extremity LE Dopplers did not show DVT. Patient seen by [facility] orthopedics outpatient 4 days ago. Outpatient left elbow MRI contemplated. Ibuprofen and prednisone course prescribed for pain. Minimal response to regimen as per patient. Patient seen at [facility] ER 2 days ago for anxiety and chest pain. No suicidality at time of visit. SBP noted to be 180s at the ER. Patient made aware by ED provider of high blood pressure and abnormal blood work results (glucose 274, anemia and thrombocytopenia) which added to patient's frustration. Recurrent nightmares over the weekend. Yesterday, patient had fleeting suicidal thoughts of suffocating himself with a pillow at home. Patient denies headache, chest pain, S OB, cough symptoms. Patient brought to ER for evaluation. Highest BP noted to 180s at the ER. BSG noted to be 300s. IV labetalol and insulin given at the ER. 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 Admission Exam Per Admitting Provider GENERAL: Comfortable, no respiratory distress, morbidly obese SKIN: Pallor, warm HEENT: Pale palpebral conjunctivae, no ptosis, dry buccal mucosa NECK : Supple, short neck, no tenderness CHEST : CTA, no tenderness HEART : RRR, no obvious murmurs ABDOMEN: Some distention, nontender EXTREMITIES : No LE swelling/tenderness, minimal tenderness left antecubital fossa, no other conspicuous deformities noted NEUROLOGIC : Coherent, visual acuity not tested, no facial asymmetry, no other gross focality Principal Diagnosis Accel HTN Hyperglycemia Anxiety from Steroids Discharge Exam see below Discharge Data Allergies Allergy/AdvReac Type Severity Reaction Status Date / Time pollen extracts AdvReac Unknown Verified 08/31/20 23:32 Consultations 09/01/20 00:18 ED Decision to Admit Stat 09/01/20 04:51 Consult Psychiatry Routine 09/01/20 04:58 Consult Behavioral Health Liaison Routine 09/01/20 06:49 Consult Orthopedic Surgery Routine Ordered Studies 09/01/20 06:49 MR elbow LT wo con Routine Current Diagnoses Hypertensive urgency (09/01/20) Allergies pollen extracts Adverse Reaction (Verified 08/31/20 23:32) Unknown Height/Weight/Isolation Height 5 ft 10 in Weight 140.6 kg Chemistry 08/31/20 22:57 Sodium 137 Potassium 4.0 Chloride 104 Carbon Dioxide 27 Anion Gap 6.0 BUN 23 H Creatinine 1.05 Glucose 343 H* Urinalysis 08/31/20 22:45 Urine Color Yellow Urine Appearance Clear Urine pH 6.0 Ur Specific [place] 1.038 H Urine Protein Negative Urine Glucose (UA) 3+ H Urine Ketones 1+ H Urine Blood Negative Urine Nitrite Negative Urine Bilirubin Negative Hospital Course (1) Asymptomatic hypertensive urgency: Likely chronic hypertension 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 Seen by Psych, OK for DC, no Steroids, f/u c PCP Labs Checked ROS-No Headache, No Visual Changes, No Nausea, No Vomiting, No Fever, No Chills, No Neck Pain or Stiffness, No Chest Pain, No Palpitations, No SOB, No STEIN, No Cough, No Sputum, No Wheezing, No Abdominal Pain, No Diarrhea, No Hematemesis, No Hemoptysis, No Unexpected Weight Loss, No Flank pain, No Melena, No Hematochezia, No Frequency, No Urgency, No Burning, No Hematuria, No Rashes, No Diaphoresis. Appetite is Normal Physical Exam Gen-AAO x 3, NAD, Afebrile Head-NCAT, EOMI, PERRLA, Anicteric Sclera, No Posterior Pharyngeal Erythema Neck-Supple, No JVD, No Thyromegaly, No Masses, No LAD, No Bruits Lungs-Clear to Auscultation Bilaterally, No Rales, No Rhonchi, No Wheezing, No Crepitus Chest-No S4, +S1, +S2, No S3, No Murmurs, No Rubs, No Gallops, No Ectopy Abdomen-Soft, Bowel Sounds Present, Non Tender, Non Distended, No Hepatomegaly, No Splenomegaly, No Palpable Masses, No Rebound, No Rigidity, No Guarding Musculoskeletal-Full Range of Motion Bilaterally, No CVAT Extremities-No Cyanosis, No Clubbing, No Edema Nuero-Cranial Nerves II-XII grossly intact, Motor WNL, DTRs WNL, Strength WNL, Non Focal Psych-Normal Mood Total Time Total Time Spent Total Time Spent (In Minutes): 45 Total Time Includes: Examination of the Patient, Discharge Planning, Medication Reconciliation and Communication With Other Providers Discharge Plan Discharge Items Patient Disposition: Home - Self-Care Reason For Visit: HTN URG Discharge Diagnosis: Accel HTN from steroids Hyperglyemia from steroids SI/Anxiety-Steroid related Condition on Discharge: Good Health Concerns: Must follow up with psychiatry Activity: Resume your previous activity Bathing: No limitations Sexual Activity: When tolerated Exercise/Sports: Gradually increase as tolerated Driving/Machine Use: No limitations Weightbearing: Full weightbearing Non-emergency contact: Primary Care Provider and Psychiatrist Call non-emergency contact if: you have any medication questions Follow-up/Referrals: Santiago Lopez DO [Primary Care Provider] - Diet: Carb Consistent or DM2 and Heart Healthy Addtl Attending Provider Instructions: Low Carb diet Pending Studies at Discharge: No Stand-Alone Forms: My [employer], Smoking Cessation Medications and DC Order Prescriptions: Continued omeprazole 40 mg Capsule,Delayed Release(Dr/Ec) 40 mg PO 1700 RF: 0 melatonin 10 mg Capsule 10 mg PO HS RF: 0 Ambien See Rx Instructions .ROUTE .COMPLEX RF: 0 ibuprofen 600 mg tablet 600 mg PO TID RF: 0 Discontinued prednisone See Rx Instructions .ROUTE .COMPLEX RF: 0 Discharge Orders: Discharge Order (Routine); Ordered 09/01/20 Ordered By: David Martin Admission Data Admit Date/Time: 09/01/20 02:33 Attending Provider: David Martin Admit Provider: Ben Ramírez Primary Care Provider: Santiago Lopez V. Other Providers: Ben Ramírez ; Lon Randhawa ; Kassy Ruiz ; Roldan Winn ; Amando Muñoz ; Jasiel Fuentes ; Milly Meza ; Santiago Ledbetter ; Marce Plummer ; Lydia Boland ; Jeannette Serrano ; Dallin Yee I. ; Urvashi Calderon ; Mey Wilson ; Silvia Gordon ; Noah Hopkins ; Cody Reese ; Thor Ca ; Marie Reese ; Robe Zambrano ; Dorothy Landaverde ; Navdeep Jefferson ; Miguel Johnson ; Pavel Vargas ; Miguel Porter ; Donald Vazquez. ; Pavel Alcaraz ; Dallin Tyler ; Nando Garcia ; Braxton iSn ; Mitchell Álvarez ; Dorothy Casanova ; Dannie Johnson ; Rojas Lopez ; Rosibel Thornton ; Jonathan Graff ; Keely Gracia
--- NOTE | 2020-09-01 18:39 | Orthopedic Consultation ---
Date of Consultation September 01, 2020 Assessment & Plan (1) Elbow pain, left: No concerns of infection, MRI essentially normal. Self limiting, likely secondary to IV placement. Supportive treatment at this time, ice, NSAIDs, Tylenol. May follow up with [facility] if symptoms persist, . Thank you for the consultation. History of Present Illness Reason for Consultation: Left elbow pain Attending Physician: David Martin DO History of Present Illness The patient is a 34 year old male who presents with c/o left cubital fossa pain which started two weeks prior after an IV was placed he reports. Denies injury, numbness or tingling. Symptoms have been improving. Allergies Allergy/AdvReac Type Severity Reaction Status Date / Time pollen extracts AdvReac Unknown Verified 08/31/20 23:32 Home Medications Medication Instructions Recorded Confirmed Type melatonin 10 mg PO HS 08/23/18 08/31/20 History omeprazole 40 mg PO 1700 08/23/18 08/31/20 History Ambien See Rx Instructions .ROUTE .COMPLEX 08/31/20 08/31/20 History ibuprofen 600 mg PO TID 08/31/20 08/31/20 History Patient History Medical History Acid reflux STABLE Conductive hearing loss of left ear with restricted hearing of right ear Depression History of asthma STABLE History of sleep apnea CPAP Legally blind REVERSE RETINITIS PIGMENTOSA (RP); MINIMAL PERIPHERAL VISION Morbid obesity Surgical History History of adenoidectomy History of arthroscopy of left knee History of circumcision History of difficult intubation Tonsillectomy= 01/26/18= Glidescope#4, ETT 8.0 at [facility] History of knee surgery left meniscus History of left knee surgery ACL REPAIR History of placement of ear tubes MULTIPLE History of tonsillectomy History of vasectomy Family History Other No family history of allergies No family history of bleeding disorder Denies family history of Hearing loss Heart disease Cancer Hypertension Stroke Asthma Social History Smoking Status: Never smoker Tobacco Type: Cigarettes Cigarettes Per Day: 1 pack per week from [id number]; Hx Alcohol Use: Yes (None in the last 6 months) Alcohol type: beer, wine and hard liquor Hx Substance Use: No Preferred Language: Kyrgyz Communication Ability: Effective Psychology Assistant Required: No marital status: Current Living Situation: Alone current occupational status: employed 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 No erythema or edema, fluctuance or induration. 5/5 muscle strength. No signs of infection. Constitutional: WD/WN, vitals as above Results & Data (MN) Vital Signs (Past 12 Hours) Vital Signs Temp Pulse Pulse Resp BP BP Pulse Ox 09/01/20 17:18 37 C 78 19 143/76 H 97 09/01/20 16:00 73 09/01/20 14:05 81 19 138/85 97 09/01/20 11:48 37 C 78 19 143/76 H 97 09/01/20 08:00 37.1 C 85 78 19 151/110 H 97 Diagnostic Findings [facility], [id number] Magnetic Resonance Report Patient: NIRAV ESPOSITO Date: 09/01/20#: [id number] [facility] ID:[id number]: Date: 1985[facility] Zip: [place], [place] [address]Cvp: 34Location: 1ESex: MRoom/Bed: [id number] Phy: Davdi Martin DODiagnosis: HTN URGPri Phy: Santiago Lopez V., DOService Date: 09/01/20Fa Phy:Interpreting Phy: Jefe WaggonerAdmit Phy: Ben Ramírez MD Ordering Phy: Ben Ramírez MD cc: ~ MR elbow LT wo con CLINICAL HISTORY: 34 years-old Male with L elbow pain. Acute pain of the left elbow and antecubital fossa fossa with history of recent IV catheter insertion COMPARISON: None. TECHNIQUE: Multiplanar, multi sequence MRI of the left elbow was performed without intravenous contrast. FINDINGS: Motion degraded exam. LATERAL COLLATERAL LIGAMENT: The lateral collateral ligaments including the lateral ulnar collateral ligament are intact and unremarkable in appearance. COMMON EXTENSOR TENDON: Mild thickening with intermediate T2 signal of the common extensor suggests tendinosis. No acute tear identified. MEDIAL COLLATERAL LIGAMENT: The ulnar collateral ligament, including the anterior and posterior bands, is intact and unremarkable in appearance. COMMON FLEXOR TENDON: The common flexor origin from the medial epicondyle is normal in appearance. No evidence of tendinosis or tear to suggest medial epicondylitis. MUSCLES: The biceps and brachialis tendon insertions are normal in appearance. No evidence of tear or strain. The triceps tendon insertion on the olecranon is also unremarkable in appearance. ULNAR NERVE: The ulnar nerve is normally located in the ulnar sulcus and is unremarkable in appearance. BONE MARROW: Bone marrow is normal in signal without evidence of fracture, marrow contusion or marrow occupying lesion. SOFT TISSUES: Minimal nonspecific subcutaneous edema of the lateral elbow posterior to the lateral epicondyle. IMPRESSION: 1. Motion degraded exam. 2. Unremarkable MRI of the elbow without acute ligamentous or tendon tear identified.
[2020-09-01] MEDS ORDERED: MELATONIN 3 MG TAB PO SCH (21:00)
[2020-09-01] MEDS ORDERED: lisinopril 5 MG TAB PO SCH (21:00)
[2020-09-02] MEDS ORDERED: INSULIN GLARGINE SOLOSTAR 100 UNITS/ML 3 ML PEN SC SCH (09:00)
== END 2020-09-01 17:30 | disposition home or self-care (01) ==
LOC: ED 22:29 → 1E 22:29